=== PATIENT | female | born 1960 | race Caucasian/White ===

== ENCOUNTER 2019-01-13 10:52 | Emergency (ER) | payer OTHER, MEDICAID ==
[~2019-01-13] VITALS: Ht 154.9 cm; Wt 106.1 kg
[2019-01-13 10:55] VITALS: Ht 154.9 cm; Wt 106.1 kg
[2019-01-13 12:21] VITALS: BP 137/73
== END 2019-01-13 12:21 | disposition home or self-care (01) ==
LOC: ED 10:52
DX: S33.5XXA Sprain of ligaments of lumbar spine, initial encounter (principal); X58.XXXA Exposure to other specified factors, initial encounter; Y93.89 Activity, other specified; Y92.89 Other specified places as the place of occurrence of the external cause; Y99.8 Other external cause status
CPT/HCPCS: J1885

== ENCOUNTER 2020-02-23 15:52 | Emergency (ER) | payer OTHER, MEDICAID ==
[~2020-02-23] VITALS: Ht 149.9 cm; Wt 103.4 kg
[2020-02-23 15:58] VITALS: Ht 149.9 cm; Wt 103.4 kg
[2020-02-23 16:58] VITALS: BP 137/58
== END 2020-02-23 16:58 | disposition home or self-care (01) ==
LOC: ED 15:52
DX: S60.410A Abrasion of right index finger, initial encounter (principal); W26.9XXA Contact with unspecified sharp object(s), initial encounter; Y93.89 Activity, other specified; Y92.89 Other specified places as the place of occurrence of the external cause; Y99.8 Other external cause status